=== PATIENT | female | born 1960 | race Hispanic/Latino ===

== ENCOUNTER 2017-10-20 12:08 | Emergency (ER) | payer MEDICARE, OTHER ==
--- NOTE | 2017-10-20 12:22 | ED PDOC ---
Arrival/HPI - General Time Seen by Provider: 10/20/17 12:21 Historian: Patient - History of Present Illness Narrative History of Present Illness (Text): 10/20/17 12:21 57 y/o female, pmh including renal stone/systemic inflammatory disease?, nkda, c /o lt. sided flank pain started this morning with no fall or trauma. Sharp pain , 9/10, non-radiating pain, aggravated by movement and turning the body but feels better when resting, no numbness or tingling, no leg or calf pain, no palpitation, no rash, no change in vision, no other medical or psychological complaints. Past Medical History - Provider Review Nursing Documentation Reviewed: Yes Family/Social History - Physician Review Nursing Documentation Reviewed: Yes Family/Social History: Unknown Family HX Allergies/Home Meds Allergies/Adverse Reactions: Allergies No Known Allergies Allergy (Verified 10/20/17 12:39) Review of Systems - Review of Systems Constitutional: absent: Fatigue, Fevers Eyes: absent: Vision Changes ENT: absent: Hearing Changes Respiratory: absent: SOB, Cough Cardiovascular: absent: Chest Pain Gastrointestinal: absent: Abdominal Pain, Nausea, Vomiting Musculoskeletal: Back Pain, Myalgias. absent: Arthralgias, Neck Pain Skin: absent: Rash, Pruritis, Skin Lesions Neurological: absent: Headache, Dizziness Psychiatric: absent: Anxiety, Depression, Suicidal Ideation Physical Exam Vital Signs Reviewed: Yes Vital Signs Temp Pulse Resp BP Pulse Ox 10/20/17 12:36 97.9 F 88 18 121/77 100 Temperature: Afebrile Blood Pressure: Normal Pulse: Regular Respiratory Rate: Normal Appearance: Positive for: Well-Appearing, Non-Toxic, Comfortable Pain Distress: Moderate Mental Status: Positive for: Alert and Oriented X 3 - Systems Exam Head: Present: Atraumatic, Normocephalic Pupils: Present: PERRL Extroacular Muscles: Present: EOMI Conjunctiva: Present: Normal Mouth: Present: Moist Mucous Membranes Neck: Present: Normal Range of Motion Respiratory/Chest: Present: Clear to Auscultation, Good Air Exchange. No: Respiratory Distress, Accessory Muscle Use Cardiovascular: Present: Regular Rate and Rhythm, Normal S1, S2. No: Murmurs Abdomen: No: Tenderness, Distention, Peritoneal Signs, Rebound, Guarding Back: Present: Normal Inspection, CVA Tenderness (Lt. CVA tenderness with pain upon turning the lt. lateral latismus dorsi muscle with no visible shingle rash) , Other (no rash). No: Midline Tenderness, Paraspinal Tenderness, Pain with Leg Raise, Decubitus Ulcer Upper Extremity: Present: Normal Inspection. No: Cyanosis, Edema Lower Extremity: Present: Normal Inspection. No: Edema Neurological: Present: GCS=15, CN II-XII Intact, Speech Normal, Motor Func Grossly Intact, Gait Normal, Memory Normal Skin: Present: Warm, Dry, Normal Color. No: Rashes Lymphatic: No: Cervical Adenopathy Psychiatric: Present: Alert, Oriented x 3, Normal Insight, Normal Concentration Medical Decision Making ED Course and Treatment: 10/20/17 13:18 -labs/lipase/trop/ua -CT abdomen and pelvis -IVF/toradol -Observe and reassess 10/20/17 16:14 -Labs show no acute findings -UA show no UTI -CT abdomen and pelvis show No acute intra-abdominal findings -Labs and radiology results discussed with patient, refused further pain medication, request to be discharged home. -I checked the [facility] report, there is no signs of drug abuse. -Discharge home with percocet, lidoderm, bed rest, observe for any skin rash for possible shingles, follow up with your own pmd within 2 days, return to the ER for any new or worsening signs or symptoms. - Lab Interpretations Lab Results: 10/20/17 13:33 10/20/17 13:33 Lab Results 10/20/17 13:33: WBC 5.2, RBC 4.20, Hgb 14.2, Hct 41.1, MCV 97.9, MCH 33.8, MCHC 34.5, RDW 12.3, Plt Count 211, MPV 9.1, Gran % 53.2, Lymph % (Auto) 34.7, [place] % (Auto) 9.8 H, Eos % (Auto) 1.7, Baso % (Auto) 0.6, Gran # 2.76, Lymph # (Auto ) 1.8, [place] # (Auto) 0.5, Eos # (Auto) 0.1, Baso # (Auto) 0.03 10/20/17 13:33: Sodium 143, Potassium 4.4, Chloride 102, Carbon Dioxide 29, Anion Gap 17, BUN 12, Creatinine 0.6 L, Est GFR ( Amer) > 60, Est GFR ( Non-Af Amer) > 60, Random Glucose 98, Calcium 9.4, Magnesium 1.7, Total Bilirubin 0.7, AST 24, ALT 20, Alkaline Phosphatase 68, Lactate Dehydrogenase 502, Total Creatine Kinase 54, Troponin I < 0.01, Total Protein 8.4 H, Albumin 4.7, Globulin 3.7, Albumin/Globulin Ratio 1.3, Lipase 36 10/20/17 13:30: Urine Color Yellow, Urine Appearance Clear, Urine pH 6.5, Ur Specific [place] 1.010, Urine Protein Negative, Urine Glucose (UA) Negative, Urine Ketones Negative, Urine Blood Small H, Urine Nitrate Negative, Urine Bilirubin Negative, Urine Urobilinogen 0.2, Ur Leukocyte Esterase Negative, Urine RBC 1 - 3, Urine WBC 2 - 5, Ur Epithelial Cells 1 - 3, Urine Bacteria Few - RAD Interpretation Radiology Orders: 10/20/17 13:12 ABDOMEN & PELVIS [ABD & PELVIS W/O PO OR IV CONT] [CT] Stat - Medication Orders Current Medication Orders: Discontinued Medications Sodium Chloride (Sodium Chloride 0.9%) 1,000 mls @ 999 mls/hr IV .Q1H1M STA Stop: 10/20/17 14:12 Last Admin: 10/20/17 13:32 Dose: 999 mls/hr eMAR Start Stop Document 10/20/17 13:32 EQ (Rec: 10/20/17 13:33 EQ [id number]) Intravenous Solution Start Date 10/20/17 Start Time 13:33 Ketorolac Tromethamine (Toradol) 30 mg IVP STAT STA Stop: 10/20/17 13:13 Last Admin: 10/20/17 13:32 Dose: 30 mg MAR Pain Assessment Document 10/20/17 13:32 EQ (Rec: 10/20/17 13:32 EQ [id number]) Pain Reassessment Is this a pain reassessment? No Sleep Is patient sleeping during reassessment? No Presence of Pain Presence of Pain Yes Pain Scale Used Pain Scale Used Numeric IVP Administration Document 10/20/17 13:32 EQ (Rec: 10/20/17 13:32 EQ [id number]) Charges for Administration # of IVP Administrations 1 Lidocaine (Lidoderm) 1 ea TD STAT STA Stop: 10/20/17 16:19 - PA / [employer] / Resident Statement MD/DO has reviewed & agrees with the documentation as recorded. Disposition/Present on Arrival - Present on Arrival Any Indicators Present on Arrival: No History of DVT/PE: No History of Uncontrolled Diabetes: No Urinary Catheter: No History of Decub. Ulcer: No - Disposition Have Diagnosis and Disposition been Completed?: Yes Diagnosis: Flank pain Disposition: HOME/ ROUTINE Disposition Time: 16:18 Patient Plan: Discharge Patient Problems: Current Active Problems Problem Status Onset Flank pain Acute Condition: IMPROVED Additional Instructions: -Discharge home with percocet, lidoderm, bed rest, observe for any skin rash for possible shingles, follow up with your own pmd within 2 days, return to the ER for any new or worsening signs or symptoms. Prescriptions: Lidocaine 5% [Lidoderm] 1 patch TP DAILY PRN #14 patch PRN Reason: Other oxyCODONE/Acetaminophen [Percocet 5/325 mg Tab] 1 tab PO TID PRN #12 tab PRN Reason: Other Referrals: Scooby Simpson MD [Staff Provider] - Follow up with primary Forms: WORK NOTE
[2017-10-20 12:38] VITALS: RESP 18; TEMP 97.9
[2017-10-20] MEDS ORDERED: Sodium Chloride 0.9% 1,000 ML IV STA (13:12)
[2017-10-20 13:33] LABS: PH,URINE 6.5 (4.7-8.0); URINE BILIRUBIN NEGATIVE (NEGATIVE); URINE BLOOD SMALL (NEGATIVE); URINE GLUCOSE (UA) NEGATIVE (NEGATIVE); URINE LEUKOCYTE ESTERASE NEGATIVE Leu/uL (NEGATIVE); URINE PROTEIN NEGATIVE mg/dL (<30 mg/dL); URINE UROBILINOGEN 0.2 E.U./dL (<1 E.U./dL)
[2017-10-20 13:39] LABS: BASO # 0.03 K/mm3 (0.0-2.0); BASO % 0.6 % (0.0-3.0); EOS # 0.1 (0.0-0.7); EOS % 1.7 % (1.5-5.0); GRAN # 2.76 (1.4-6.5); GRAN % 53.2 % (50.0-68.0); HEMOGLOBIN 14.2 g/dL (12.0-16.0); LYMPH # 1.8 (1.2-3.4); LYMPH % 34.7 % (22.0-35.0); MEAN CELL VOLUME 97.9 fl (80.0-105.0); MEAN CORPUSCULAR HEMOGLOBIN 33.8 pg (25.0-35.0); MEAN CORPUSCULAR HGB CONC 34.5 g/dl (31.0-37.0); MEAN PLATELET VOLUME 9.1 fl (7.0-11.0); MONO # 0.5 (0.1-0.6); MONO % 9.8 % (1.0-6.0); RBC 4.2 10^6/uL (3.5-6.1); RED CELL DISTRIBUTION WIDTH 12.3 % (11.5-14.5); WHITE BLOOD COUNT 5.2 10^3/ul (4.5-11.0)
[2017-10-20 13:51] LABS: ALB/GLOB RATIO 1.3 (1.1-1.8); ALBUMIN 4.7 g/dL (3.0-4.8); ALT/SGPT 20 U/L (7-56); AST/SGOT 24 U/L (14-36); BLOOD UREA NITROGEN 12 mg/dL (7-21); CALCIUM 9.4 mg/dL (8.4-10.5); GFR AFRICAN-AMERICAN > 60; GFR NON-AFRICAN AMERICAN > 60; LIPASE 36 U/L (23-300)
[2017-10-20 14:02] LABS: TROPONIN I < 0.01 ng/mL
[2017-10-20 14:06] LABS: URINE APPEARANCE CLEAR (CLEAR); URINE COLOR YELLOW (YELLOW)
[2017-10-20 14:08] LABS: URINE BACTERIA FEW (NEG)
--- NOTE | 2017-10-20 15:28 | CT ---
PROCEDURE: CT Abdomen and Pelvis without intravenous contrast HISTORY: lt. flank pain x 2 days COMPARISON: None. TECHNIQUE: Without contrast.. Contrast dose: Radiation dose: Total exam DLP = 582 mGy-cm. This CT exam was performed using one or more of the following dose reduction techniques: Automated exposure control, adjustment of the mA and/or kV according to patient size, and/or use of iterative reconstruction technique. FINDINGS: LOWER THORAX: Unremarkable. LIVER: Unremarkable. No gross lesion or ductal dilatation. GALLBLADDER AND BILE DUCTS: Unremarkable. PANCREAS: Unremarkable. No gross lesion or ductal dilatation. SPLEEN: Unremarkable. ADRENALS: Unremarkable. No mass. KIDNEYS AND URETERS: Unremarkable. No hydronephrosis. No solid mass. VASCULATURE: Unremarkable. No aortic aneurysm. BOWEL: Unremarkable. No obstruction. No gross mural thickening. APPENDIX: Unremarkable. Normal appendix. PERITONEUM: Unremarkable. No free fluid. No free air. LYMPH NODES: Unremarkable. No enlarged lymph nodes. BLADDER: Unremarkable. REPRODUCTIVE: Unremarkable. BONES: No acute fracture. OTHER FINDINGS: None. IMPRESSION: No acute intra-abdominal findings
[2017-10-20] MEDS ORDERED: Lidocaine 5% Patch TD STA (16:18)
[2017-10-20 17:23] VITALS: BP 130/73; PULSE 72; O2SAT 98
== END 2017-10-20 17:22 | disposition home or self-care (01) ==
LOC: ED 12:08
DX: R10.9 Unspecified abdominal pain (principal)
CPT/HCPCS: 74176; 80053; 81001; 82550; 83615; 83690; 83735; 84484; 85025; 96374; 99283; J1885; J7030